=== PATIENT | male | born 1950 | race Caucasian/White ===

== ENCOUNTER 2024-06-22 20:44 | Emergency (ER) | payer OTHER, MEDICARE ==
[2024-06-22 20:56] VITALS: BP 118/77; PULSE 75; RESP 18; TEMP 98; BMI 28.0
== END 2024-06-22 23:19 | disposition home or self-care (01) ==
LOC: FER 20:44
DX: S00.83XA Contusion of other part of head, initial encounter (principal); W10.8XXA Fall (on) (from) other stairs and steps, initial encounter
CPT/HCPCS: 70450-TC; 72125-TC; 99284-25